=== PATIENT | male | born 1955 | race Caucasian/White ===

== ENCOUNTER 2018-03-25 22:34 | Inpatient (IN) | payer BC ==
[~2018-03-25] VITALS: Ht 170.2 cm; Wt 94.3 kg
--- NOTE | ~2018-03-25 | EKG ---
[place] [address] [employer] [employer] [place] [address] ELECTROCARDIOGRAM REPORT Name: CAROLEE ENGLISH [facility] Room #: 421-P ADM IN M.R.#: [id number] Admission: 03/26/18 Attend Phys: Steven Watson DO Discharge: Date of : 55 Report #: [id number] THIS REPORT FOR: //name// [facility] ED Test Date: 2018-03-25 Test Time: 22:42:56 Pat Name: CAROLEE ENGLISH Department: Room: Gender: M Parking Enforcer: ROMAN : 1955 Requested By: Sherrie Laguna Order Number: [id number] MD: Tommy Rasheed Measurements Intervals Marshall Rate: 65 P: 27 NC: 146 QRS: 38 QRSD: 93 T: 42 QT: 416 QTc: 433 Interpretive Statements Sinus rhythm No significant abnormality Compared to ECG 08/30/2015 15:56:28 No significant changes Electronically Signed On 03-26-2018 7:55:09 CDT by Tommy Rasheed [email or web address] <ELECTRONICALLY SIGNED> By: Tommy Rasheed MD, [facility] 03/26/18 0755 D: [id number] Tommy Rasheed MD, [facility] /EPI
--- NOTE | ~2018-03-25 | 2DMMODE ---
[facility] [address] [place] [address] 2 D/M-MODE ECHOCARDIOGRAM Name: CAROLEE ENGLISH [facility] Room #: 220-P [facility] IN M.R.#: [id number] Admission: 03/26/18 Attend Phys: Steven Watson, Discharge: Date of : 55 Date of Service: 03/27/18 1025 Report #: [id number] THIS REPORT FOR: //name// APPROVED REPORT Study performed: 03/27/2018 09:23:02 EXAM: Comprehensive 2D, Doppler, and color-flow Echocardiogram Patient Location: Bedside Room #: 220 Status: routine BSA: 2.06 HR: 60 bpm BP: 115/59 mmHg Other Information Study Quality: Adequate Indications Hypertension/HDD Dizziness. 2D Dimensions RVDd: 39.78 mm LVEF(%): 64.90 (>50%) IVSd: 10.99 (7-11mm) LVOT Diam: 19.26 (18-24mm) LVDd: 53.87 mm PWd: 10.95 (7-11mm) Ascending Ao: 30.41 (22-36mm) LVDs: 34.55 (25-40mm) Aortic Root: 35.19 mm IVC: 13.00 mm Moon's LVEF: 64.90 % Volumes Left Atrial Volume (Systole) Single Plane 4CH: 36.48 mL Single Plane 2CH: 42.18 mL LA ESV Index: 22.00 mL/m2 Aortic Valve AoV Peak Randal.: 2.45 m/s AO Peak Gr.: 24.10 mmHg LVOT Max P.87 mmHg AO Mean Gr.: 12.77 mmHg LVOT Mean P.74 mmHg AO V2 Mean: 1.66 m/s LVOT Max V: 1.21 m/s AO V2 VTI: 59.12 cm LVOT Mean V: 0.76 m/s CAITLIN (VTI): 1.68 cm2 LVOT V1 VTI: 34.22 cm CAITLIN Vmax: 1.44 cm2 AI Vmax: 3.86 m/s SV (LVOT): 99.59 mL [facility] [place] [address] 2 D/M-MODE ECHOCARDIOGRAM Name: CAROLEE ENGLISH [facility] Room #: 220-P [facility] IN [facility]#: [id number] Admission: 03/26/18 Attend Phys: Steven Watson, Discharge: Date of : 55 Date of Service: 03/27/18 1025 Report #: [id number] AI Amelia: 1.58 m/s2 AI PHT: 708.58 ms Mitral Valve E/A Ratio: 1.1 MV Decel. Time: 252.77 ms MV E Max Randal.: 1.08 m/s MV A Randal.: 1.02 m/s MV PHT: 73.30 ms IVRT: 96.89 ms Pulmonary Valve PV Peak Randal.: 0.97 m/s PV Peak Gr.: 3.79 mmHg Pulmonary Vein P Vein S: 0.65 m/s P Vein A: 0.26 m/s P Vein D: 0.32 m/s P Vein A Dur.: 92.3 msec P Vein S/D Ratio: 2.03 Tricuspid Valve TR Peak Randal.: 2.52 m/s TR Peak Gr.: 25.37 mmHg PA Pressure: 30.00 mmHg Left Ventricle The left ventricle is normal size. There is normal left ventricular wall thickness. The left ventricular systolic function is normal. The left ventricular ejection fraction is within the normal range. LVEF is 55-60%. The left ventricular diastolic function is normal. Right Ventricle The right ventricle is normal size. The right ventricular systolic function is normal. Atria The left atrium size is normal. The right atrium size is normal. Aortic Valve The aortic valve is normal in structure. Aortic valve is calcified. Mild aortic regurgitation. Mild aortic stenosis. Mitral Valve The mitral valve is normal in structure. Trace mitral regurgitation. No evidence of mitral valve stenosis. [facility] [address] [place] [address] 2 D/M-MODE ECHOCARDIOGRAM Name: ENGLISHCAROLEE [facility] Room #: 220-P [facility] IN M.R.#: [id number] Admission: 03/26/18 Attend Phys: Steven Watson, Discharge: Date of : 55 Date of Service: 03/27/18 1025 Report #: [id number] Tricuspid Valve The tricuspid valve is normal in structure. There is trace tricuspid regurgitation. Estimated PAP 30 mmHg. There is no pulmonary hypertension. Pulmonic Valve The pulmonary valve is normal in structure. There is no pulmonic valvular regurgitation. Great Vessels The aortic root is normal in size. IVC is normal in size and collapses >50% with inspiration. Pericardium There is no pericardial effusion. <Conclusion> The left ventricle is normal size. LVEF is 55-60%. The aortic valve is normal in structure. Aortic valve is calcified. Mild aortic regurgitation. Mild aortic stenosis. The mitral valve is normal in structure. Trace mitral regurgitation. The tricuspid valve is normal in structure. There is trace tricuspid regurgitation. Estimated PAP 30 mmHg. There is no pulmonary hypertension. The pulmonary valve is normal in structure. There is no pericardial effusion. <ELECTRONICALLY SIGNED> By: Kendall Christian MD 03/27/18 1025 1025 1025 Kendall Christian MD /INF
--- NOTE | ~2018-03-25 | O ---
[facility] [address] [place] [address] OPERATIVE REPORT Name: TAMEKACAROLEE JUNAID [facility] Room #: 220-P [facility] IN M.R.#: [id number] Admission: 03/26/18 Attend Phys: Steven Watson DO Discharge: Date of : 55 Report #: [id number] THIS REPORT FOR: //name// CC: Steven Red SURGEON: Nadeem Red MD GRAIN BROKER: NANCY Ramírez. PREOPERATIVE DIAGNOSES: 1. Acute appendicitis. 2. Hypertension. 3. History of abdominal aortic aneurysm. 4. Coronary artery disease. POSTOPERATIVE DIAGNOSES: 1. Acute nonsuppurative nonperforated appendicitis. 2. Hypertension. 3. History of abdominal aortic aneurysm. 4. Coronary artery disease. PROCEDURE: Laparoscopic appendectomy. ANESTHESIA: General endotracheal anesthesia and local anesthetic. ESTIMATED BLOOD LOSS: 5 mL. SPECIMEN: Appendix. COMPLICATIONS: None appreciated. INDICATIONS FOR PROCEDURE: This is a 63-year-old male patient of Dr. Mike Justin, who developed periumbilical abdominal pain localizing to his right lower quadrant over the past 24 hours. The patient had associated nausea and bloating and has anorexia. CT of the abdomen and pelvis showed changes consistent with early acute appendicitis. The patient's exam was consistent with this. He presents today for laparoscopic appendectomy. OPERATIVE FINDINGS: Upon entrance into the abdominal cavity, there is no pus or purulent fluid seen within the abdominal cavity. A small amount of clear/serous free fluid was present. There was no evidence for abscess or perforation. The appendix itself was curled upon itself and was adherent to the lateral aspect of the cecum. The acute inflammatory process involved the middle third of the appendix. No other significant intra-abdominal pathology was seen including no Meckel's diverticulum. After removal of the appendix, the staple line on the [address] [address] OPERATIVE REPORT Name: CAROLEE ENGLISH JUNAID [facility] Room #: 220-P [facility] IN [facility].#: [id number] Admission: 03/26/18 Attend Phys: Steven Watson DO Discharge: Date of : 55 Report #: [id number] cecum was intact and secure. At the conclusion of the operation, the sponge, needle, and instrument counts were correct. There was no evidence for iatrogenic injury. DESCRIPTION OF PROCEDURE IN DETAIL: After the risks, benefits, and expectations of the operation were discussed in detail with the patient, informed consent was obtained. The patient was identified in the preoperative holding area. He was given IV antibiotics as documented in the chart in line with SCIP metrics. The patient has been receiving scheduled IV Zosyn. The patient was then taken to the operating room and he was placed in the supine position. SCDs were placed on the patient's bilateral lower extremities and pneumatic compression was initiated. The patient was then given IV sedation and he was intubated without incident. His abdomen was prepped and draped in standard sterile fashion. A time-out was performed to identify the correct patient and procedure. Local anesthetic was infiltrated into the skin and subcutaneous tissue infraumbilically where a curvilinear incision was made with #15 blade scalpel. Dissection was carried down to the base of the umbilicus where a small transverse incision was made and the 12 mm Visiport was placed intraperitoneally with a 0-degree angled laparoscope. Pneumoperitoneum was achieved with insufflation of carbon dioxide to 15 mmHg. A 30-degree angled laparoscope was then inserted. The patient was placed in the Trendelenburg position. A suprapubic 5 mm and left lower quadrant 5 mm port were each placed under direct visualization after local anesthetic was infiltrated into the skin and subcutaneous tissue and appropriately sized incisions were made. The patient was then rotated to his left with his right side up. Operative findings are as noted above. The appendix was easily visualized. The base of the appendix was seen and a window was made in the mesoappendix adjacent to the base of the appendix. After dissecting enough of the appendix free off of the cecum, a blue load 45 mm MARYLOU stapler was used to staple and divide the appendix at its base. The mesoappendix was then divided with the ultrasonic dissector with good hemostasis. The appendix and mesoappendix were then placed in an Endopouch and removed through the infraumbilical port site. The abdominal cavity was then irrigated and suctioned. The staple line was secure. The small bowel was run back and there was no evidence for Meckel's diverticulum. After ensuring final hemostasis within the abdominal cavity, the 12 mm port site fascial opening was closed with an 0 PDS suture using the Jose-Cesar laparoscopic fascial closure device. The abdominal cavity was then desufflated and the remaining ports were removed. Interrupted subcuticular 4-0 Monocryl sutures and Dermabond were used to close the skin incisions. The patient tolerated the procedure [facility] [address] [place] [address] OPERATIVE REPORT Name: CAROLEE ENGLISH [facility] Room #: 220-P [facility] IN M.R.#: [id number] Admission: 03/26/18 Attend Phys: Steven Watson DO Discharge: Date of : 55 Report #: [id number]. He was awakened, extubated, and taken to the recovery room in stable condition with no apparent intraoperative complications. <ELECTRONICALLY SIGNED> By: Nadeem Red MD, FACS 03/27/18 0826 1027 1226 Nadeem Red MD, FACS /nt
[~2018-03-25 22:34] MED LIST: ASPIR 8181 MG PO; B COMPLEX1 EAC1 PO; HYDROCODONE-AP1 EAC6 PO; LIPITOR40 MG PO; LOTREL 10-20 M1 EACH PO; TOPROL XL50 MG PO; TYLENOL325 MG PO; VITAMIN D-32000 UNIT PO; VITAMINC500 PO
[2018-03-25 22:54] VITALS: BP 140/58
[2018-03-25 23:13] LABS: HEMATOCRIT 40.8 % (42.0-52.0); HEMOGLOBIN 14.1 gm/dL (14.0-18.0); MCH 31.7 pg (26.0-34.0); MCHC 34.6 g/dL (28.0-37.0); MCV 91.6 fL (80.0-100.0); PLATELET COUNT 159 thou/uL (150-400); RBC 4.45 mil/uL (4.50-6.00); RDW 12.4 % (10.5-14.5)
[2018-03-25 23:17] LABS: ANION GAP 6 mmol/L (7-16); BUN 11 mg/dL (7-18); CALCIUM 8.6 mg/dL (8.5-10.1); CHLORIDE 100 mmol/L (98-107); CO2 28 mmol/L (21-32); CREATININE 0.9 mg/dL (0.7-1.3); GLUCOSE 126 mg/dL (74-106); POTASSIUM 4.1 mmol/L (3.5-5.1); SODIUM 134 mmol/L (136-145)
[2018-03-25 23:27] LABS: ALBUMIN 3.8 g/dL (3.4-5.0); LIPASE 222 U/L (73-393); SGOT 21 U/L (15-37); SGPT 38 U/L (30-65); TOTAL BILIRUBIN 0.7 mg/dL (<0.1-1.0); TOTAL PROTEIN 7.4 g/dL (6.4-8.2); TROPONIN-I < 0.04 ng/mL (<0.06)
[2018-03-25 23:36] LABS: ABSOLUTE NEUTROPHILS 4.9 thou/uL (1.4-8.2); LARGE PLATELETS OCCASIONAL
[2018-03-25 23:56] LABS: URINE BILIRUBIN NEGATIVE (Negative); URINE BLOOD NEGATIVE (Negative); URINE CLARITY CLEAR; URINE COLOR YELLOW; URINE GLUCOSE-RANDOM* NEGATIVE (Negative); URINE KETONES NEGATIVE (Negative); URINE LEUKOCYTES-REFLEX NEGATIVE (Negative); URINE NITRITE-REFLEX NEGATIVE (Negative); URINE PROTEIN (DIPSTICK) NEGATIVE (Negative); URINE SPECIFIC GRAVITY <= 1.005 (1.005-1.035); URINE UROBILINOGEN 0.2 E.U./dl (0.2-1.0)
[2018-03-26] MEDS ORDERED: FOLIC ACID1 MG PO (00:37)
[2018-03-26 00:53] VITALS: BP 125/78
[2018-03-26 01:01] VITALS: BP 120/74
[2018-03-26 01:30] LABS: APTT 26.3 Seconds (24.5-32.8); PROTIME 9.9 Seconds (9.3-11.4)
[2018-03-26 06:31] LABS: CALCIUM 8.4 mg/dL (8.5-10.1); CREATININE 0.7 mg/dL (0.7-1.3); POTASSIUM 4.4 mmol/L (3.5-5.1)
[2018-03-26 08:20] VITALS: BP 120/56
[2018-03-26] MEDS ORDERED: HYDROCODONE-AP1 EAC6 PO (10:12)
[2018-03-26] MEDS ORDERED: SENNA-S TABLET1 EACH PO (10:12)
[2018-03-26 12:40] VITALS: BP 115/60
[2018-03-26 13:09] LABS: ABSOLUTE NEUTROPHILS 7.9 thou/uL (1.4-8.2); BASOPHILS 0.4 % (0.0-2.0); EOSINOPHILS 0.3 % (0.0-3.0); HEMATOCRIT 41.4 % (42.0-52.0); HEMOGLOBIN 14.2 gm/dL (14.0-18.0); LYMPHOCYTES 6.2 % (24.0-44.0); MCHC 34.3 g/dL (28.0-37.0); MCV 93.1 fL (80.0-100.0); MONOCYTES 3.5 % (1.0-8.0); PLATELET COUNT 141 thou/uL (150-400); POLYS 89.6 % (36.0-66.0); RBC 4.45 mil/uL (4.50-6.00); RDW 12.7 % (10.5-14.5); WBC 8.8 thou/uL (4.0-11.0)
[2018-03-26 13:20] LABS: PHOSPHORUS 3.7 mg/dL (2.5-4.9)
[2018-03-26 13:30] VITALS: BP 124/79
[2018-03-26 20:00] VITALS: BP 122/67
[2018-03-27 07:05] VITALS: BP 115/59
[2018-03-27 14:04] VITALS: BP 115/59
== END 2018-03-27 15:05 | disposition home or self-care (01) | DRG 341 ==
LOC: ER 22:34 → 4E 03-26 00:29 → EROBS 03-26 00:29 → 4E 03-26 00:50 → SICU 03-26 15:00 → ENTRNSPT 03-27 14:53 → SICU 03-27 15:05
PROVIDERS: Family Medicine; Nurse Practitioner Family; Physician Assistant
PROC: 0DTJ4ZZ Resection of Appendix, Percutaneous Endoscopic Approach (ICD-10-PCS; principal; 2018-03-26)
DX: K35.80 Unspecified acute appendicitis (principal); E43 Unspecified severe protein-calorie malnutrition; I10 Essential (primary) hypertension; I25.10 Atherosclerotic heart disease of native coronary artery without angina pectoris; E78.5 Hyperlipidemia, unspecified; I71.4 Abdominal aortic aneurysm, without rupture; E78.00 Pure hypercholesterolemia, unspecified; F10.20 Alcohol dependence, uncomplicated; Z60.2 Problems related to living alone; Z79.899 Other long term (current) drug therapy; Z87.891 Personal history of nicotine dependence; Z95.5 Presence of coronary angioplasty implant and graft
CPT/HCPCS: 15000; 50010; 50101; 50249; 50411; 50555; 50558; 50739; 50740; 50962; 51489; 51975; 52265; 53307; 54022; 54118; 56526; 56527; 62110; 62900; 70005